=== PATIENT | male | born 1950 ===

== ENCOUNTER 2016-05-30 19:12 | Emergency (ER) | payer MEDICARE, MEDICAID ==
[~2016-05-30] VITALS: Ht 172.7 cm; Wt 94.1 kg
[2016-05-30 19:14] VITALS: BP 121/83; PULSE 65; RESP 18; O2SAT 97
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
[2016-05-30] MEDS ORDERED: oxyCODONE-Acetamin 5-325 mg Tablet PO ONE (19:25)
--- NOTE | 2016-05-30 19:54 | DRSVH ---
PROCEDURE: CT CERVICAL SPINE WITHOUT CONTRAST ([id number]) INDICATIONS: neck pain, abnormal xrays from urgent care, trauma TECHNIQUE: Noncontrast 3 mm thick sections acquired from the skull base to the T4 level. Sagittal and coronal r eformats were then constructed. For radiation dose reduction, the following was used: automated exp osure control, adjustment of mA and/or kV according to patient size. COMPARISON: [facility], CR, SPINE CERVICAL 2 OR 3VW, 10/08/2012, 21:12. [facility], CR, XR [employer] PA CXR MIN 3VW RT, 05/30/2016, 17:49. FINDINGS: Image quality: Excellent. Bones: No acute fracture dislocation. Trace anterolisthesis is present at C4-5 which is new when comp ared with the study dated 11/15/10. Soft tissues: Prevertebral soft tissues are normal in thickness. No paravertebral hematomas. No ap ical pneumothoraces. IMPRESSION: 1. No acute cervical spine fracture. 2. Trace C4-5 anterolisthesis which is new when compared with the prior CT from 2010. If there is clinical concern for new ligamentous laxity, MRI of the cervical spine is recommended to evaluate for acute edematous injury. This finding was discussed with Dr. Renner at 7:50 PM on 05/30/16. Dictated by: Arelis Haq M.D. on 05/30/2016 at 19:43 Approved by: Arelis Haq M.D. on 05/30/2016 at 19:52
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
[2016-05-30] MEDS ORDERED: _oxyCODONE/APAP 5-325 mg Tablet PO PRN (21:45)
[2016-05-30 22:04] VITALS: BP 116/64; PULSE 68; RESP 18; O2SAT 95
== END 2016-05-30 22:05 | disposition home or self-care (01) ==
LOC: SED 19:12
DX: S16.1XXA Strain of muscle, fascia and tendon at neck level, initial encounter (principal); Y04.0XXA Assault by unarmed brawl or fight, initial encounter; Y93.89 Activity, other specified; Y92.89 Other specified places as the place of occurrence of the external cause; Y99.8 Other external cause status; R07.81 Pleurodynia; F17.200 Nicotine dependence, unspecified, uncomplicated; Z88.5 Allergy status to narcotic agent

== ENCOUNTER 2016-06-25 15:42 | Emergency (ER) | payer MEDICARE, MEDICAID ==
[~2016-06-25] VITALS: Ht 172.7 cm; Wt 95.5 kg
[2016-06-25 15:59] VITALS: BP 132/83; PULSE 66; RESP 16; O2SAT 97
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
--- NOTE | 2016-06-25 18:06 | DRSVH ---
PROCEDURE: X-RAY RIGHT RIBS INCLUDEING PA CHEST, MINUMUM THREE VIEWS ([id number]) INDICATIONS: fall,pain right ribs in back TECHNIQUE: 2 views of the right ribs were acquired, along with a single view chest. COMPARISON: None. FINDINGS: Surgical changes and devices: None. Bones and chest wall: No acute fractures or dislocations. There are healed posterior inferior right rib fractures. No suspicious bony lesions. Overlying soft tissues appear unremarkable. Lungs and pleura: No pleural effusions or pneumothorax. Lungs appear clear. Mediastinum: Mediastinal contours appear normal. Heart size is normal. IMPRESSION: No acute radiographic findings. If pain persists, repeat study in 5-7 days is recommende d to exclude occult fracture. Dictated by: Arelis Haq M.D. on 06/25/2016 at 18:02 Approved by: Arelis Haq M.D. on 06/25/2016 at 18:05
--- NOTE | 2016-06-25 18:09 | DRSVH ---
PROCEDURE: X-RAY CERVICAL SPINE, 2 OR 3 VIEWS INDICATIONS: fall TECHNIQUE: 3 view(s) of the cervical spine were acquired. COMPARISON: None. FINDINGS: Bones: No fractures or dislocations to the C5 level. The lateral masses of C1 appear intact on the odontoid view. No suspicious bony lesions. Soft tissues: No prevertebral soft tissue swelling. IMPRESSION: No acute cervical spine injury. Limited study. Dictated by: Arelis Haq M.D. on 06/25/2016 at 18:07 Approved by: Arelis Haq M.D. on 06/25/2016 at 18:08
--- NOTE | 2016-06-25 18:09 | DRSVH ---
PROCEDURE: X-RAY LEFT WRIST COMPLETE, MINIMUM THREE VIEWS ([id number]) INDICATIONS: fall TECHNIQUE: 4 views of the wrist were acquired. COMPARISON: [facility], , WRIST COMP MIN 3VW (LT), 11/07/2013, 15:10. FINDINGS: Bones: There is an old non-unified fracture of the scaphoid. Severe degenerative changes are present at the radiocarpal joint. No acute fracture or dislocation. Scaphoid view: There is an old non-unified scaphoid fracture. Soft tissues: No suspicious soft tissue calcifications. IMPRESSION: Old non-unified scaphoid fracture. No acute fracture or dislocation. If pain persists, re peat study in 5-7 days is recommended to exclude occult fracture. Dictated by: Arelis Haq M.D. on 06/25/2016 at 18:05 Approved by: Arelis Haq M.D. on 06/25/2016 at 18:07
[2016-06-25] MEDS ORDERED: oxyCODONE-Acetamin 5-325 mg Tablet PO ONE (18:15)
--- NOTE | 2016-06-25 18:18 | DRSVH ---
PROCEDURE: X-RAY THORACIC SPINE, 3 VIEWS INDICATIONS: fall TECHNIQUE: 3 views of the thoracic spine were acquired. COMPARISON: None. FINDINGS: Bones: No fractures or dislocations. Moderate degenerative change. No suspicious bony lesions. 12 pa irs of ribs are noted, and appear intact where visualized. Soft tissues: No paravertebral stripe thickening. IMPRESSION: Moderate degenerative change. No wedge compression deformities. Dictated by: Arelis Haq M.D. on 06/25/2016 at 18:16 Approved by: Arelis Haq M.D. on 06/25/2016 at 18:16
--- NOTE | 2016-06-25 19:36 | DRSVH ---
PROCEDURE: CT CERVICAL SPINE WITHOUT CONTRAST ([id number]) INDICATIONS: fall, neck pain, tender at c6-c7 TECHNIQUE: Noncontrast 3 mm thick sections acquired from the skull base to the T4 level. Sagittal and coronal r eformats were then constructed. For radiation dose reduction, the following was used: automated exp osure control, adjustment of mA and/or kV according to patient size. COMPARISON: None. FINDINGS: Image quality: Motion artifact limits evaluation at the cervicothoracic junction. Bones: No fractures or dislocations. Moderate degenerative changes present at the cervicothoracic ju nction. Visualized superior ribs are intact. Soft tissues: Prevertebral soft tissues are normal in thickness. No paravertebral hematomas. No ap ical pneumothoraces. IMPRESSION: No acute cervical spine injury. Degenerative change. Dictated by: Arelis Haq M.D. on 06/25/2016 at 19:30 Approved by: Arelis Haq M.D. on 06/25/2016 at 19:34
[2016-06-25 20:12] VITALS: BP 158/88; PULSE 60; RESP 16; O2SAT 98
[2016-06-25] MEDS ORDERED: _oxyCODONE/APAP 5-325 mg Tablet PO PRN (20:35)
== END 2016-06-25 21:18 | disposition home or self-care (01) ==
LOC: SED 15:42
DX: S16.1XXA Strain of muscle, fascia and tendon at neck level, initial encounter (principal); S63.502A Unspecified sprain of left wrist, initial encounter; S20.222A Contusion of left back wall of thorax, initial encounter; W11.XXXA Fall on and from ladder, initial encounter; Y93.H9 Activity, other involving exterior property and land maintenance, building and construction; Y92.009 Unspecified place in unspecified non-institutional (private) residence as the place of occurrence of the external cause; Y99.8 Other external cause status; F17.200 Nicotine dependence, unspecified, uncomplicated; Z88.5 Allergy status to narcotic agent

== ENCOUNTER 2016-07-21 13:57 | Emergency (ER) | payer MEDICARE, MEDICAID ==
[~2016-07-21] VITALS: Ht 172.7 cm; Wt 95.5 kg
[2016-07-21 14:00] VITALS: BP 152/101; RESP 16; O2SAT 98
--- NOTE | 2016-07-21 15:33 | ED.REPORT ---
HPI-General Illness Date of Service July 21, 2016 ED Provider: Bryson Jurado MD 65 year old male with a history of arthritis presents to the ER after he woke up with left neck pain since yesterday. He describes this as "stiff". The day prior he was moving boxes into the attic on an A frame ladder. He is not sure if the pain is from this or sleeping wrong. He denies any trauma. Associated symptoms include occipital headache. Pt denies blurry vision and difficulty swallowing. Pt has had this pain previously and is wearing a neck brace that he was given previously. Pain worse with moving head. Nursing Notes Stated Complaint: PULLED NECK AND SHOULDER MUSCLES Chief Complaint: ENT & Mouth Nursing Notes Reviewed: Yes Allergies: Coded Allergies: hydrocodone (Verified Allergy, Unknown, rash, 07/21/16) Scheduled PRN Cyclobenzaprine (Cyclobenzaprine) 5 Mg Tablet 5 MG PO HS PRN PRN Spasm Ibuprofen (Ibuprofen) 800 Mg Tablet 800 MG PO TID PRN PRN For Pain General Time Seen by MD: 15:27 Chief Complaint Other (neck pain) Hx Obtained From: Patient Arrived By: Walk-in Onset Occurred: Yesterday Symptom Duration: Since onset Location: : Neck Quality: Painful Severity: Current: Moderate Associated with: Reports: Headache, Denies: Fever Exacerbated by: Moving affected area (head) Similar Sx Previous: Yes Past Medical History Past Medical History Arthritis Past Surgical History none reported Smoking History Current Every Day Smoker Social History Alcohol Use: "Social" Drug Use: THC Ambulatory Status Independent Review of Systems Full Review of Systems GI: Denies: Dysphagia Musculoskeletal: Reports: Neck pain Neurologic: Reports: Headache, Denies: Change LOC, Numbness, Vision change, Weakness Complete sys rev & neg: except as marked. Physical Exam Vital Signs Vital Signs Date Time Temp Pulse Resp B/P Pulse Ox O2 Delivery O2 Flow Rate FiO2 07/21/16 16:07 36.2 75 16 149/89 98 Room Air 07/21/16 14:00 36.2 72 16 152/101 98 Room Air Initial VS: Reviewed General/Constitutional: Well-developed, Well-nourished Head / Eyes: Atraumatic, Normocephalic, PERRL ENT: Mucous membranes moist, Conjunctiva normal, No scleral icterus Respiratory: Breath sounds normal, Clear to auscultation, No respiratory distress Cardiovascular: Regular rate & rhythm, Heart sounds normal (No murmurs), Intact distal pulses Extremities: Vascular intact, Neuro intact Skin: Warm, Dry, No cyanosis Neurologic: Alert, Oriented, Nonfocal (CN II-XII intact) Psychiatric: Mood/affect normal, Behavior normal, Normal thought content Neck: Diffuse L sided neck tenderness No C-spine tenderness. Rotation 30 degrees to the L. Re-Eval/Medical Decision Med Decision/Clinical Course 65-year-old male with chronic neck pain presenting with neck strain 1 day. He reports he had heavy lifting and then slept on it corrected and woke up with neck pain and limited range of motion. No midline tenderness. No trauma. Lateral neck tenderness as above. I cleaned strain. We will treat with muscle relaxers and NSAIDs. Return precautions given. Time of Eval: 15:54 Re-Evaluation/Progress Note: Discussed plan for discharge and follow up. All questions addressed. Counseled Regarding: Diagnosis, Need for follow-up, When/why to return to ED Discharge & Departure Primary Impression: Neck strain Encounter type: initial encounter Qualified Code: S16.1XXA - Strain of muscle, fascia and tendon at neck level, initial encounter Disposition: Home Discharge Condition All VS Reviewed: Yes Condition: Stable Patient Instructions: Cervical Neck Strain Exercises (GEN) Additional Instructions: For pain you can take an extra-strength Ibuprofen every 8 hours. Take the muscle relaxer Flexeril as directed. Do not drink alcohol or drive while taking this. Make sure that you keep stretching your neck and heat/ice the area as tolerated. Follow up with a doctor if not better by Monday. Return to the ER for any new or worsening pain, numbness, weakness, speech changes or any other concerning symptoms. Referrals: [facility] (PCP) [facility] Scribe Attestation Portions of this note were transcribed by Vicky Reed. I, (Dr. Bryson Walters) personally performed the history, physical exam and medical decision- making; I reviewed and confirmed the accuracy of the information in the transcribed note. Signed by: Vicky Reed. Alina, 07/21/2016, [id number] copies to: [facility] Bryson Jurado MD July 21, 2016 15:33 Vicky Reed July 21, 2016 15:39
[2016-07-21] MEDS ORDERED: IBUP800T28 PO (15:40)
[2016-07-21] MEDS ORDERED: CYCL5TAB PO (15:40)
[2016-07-21 16:07] VITALS: BP 149/89; PULSE 75; RESP 16; O2SAT 98
== END 2016-07-21 16:10 | disposition home or self-care (01) ==
LOC: SED 13:57
DX: S16.1XXA Strain of muscle, fascia and tendon at neck level, initial encounter (principal); X50.0XXA Overexertion from strenuous movement or load, initial encounter; Y93.89 Activity, other specified; Y92.008 Other place in unspecified non-institutional (private) residence as the place of occurrence of the external cause; Y99.8 Other external cause status; M19.90 Unspecified osteoarthritis, unspecified site; F17.200 Nicotine dependence, unspecified, uncomplicated; Z88.5 Allergy status to narcotic agent
CPT/HCPCS: 96372; 99283; J1885

== ENCOUNTER 2016-07-23 13:24 | Emergency (ER) | payer MEDICARE, MEDICAID ==
[~2016-07-23] VITALS: Ht 172.7 cm; Wt 95.5 kg
[~2016-07-23 13:24] MED LIST: CYCL5TAB PO; IBUP800T28 PO
[2016-07-23 13:41] VITALS: BP 148/95; PULSE 60; RESP 20; O2SAT 98
--- NOTE | 2016-07-23 14:09 | ED.REPORT ---
HPI-Trauma Minor / Fall Date of Service July 23, 2016 ED Provider: Bryson Jurado MD Pt is a 65 y.o. male who presents to the ED c/o headache secondary to a GLF yesterday. Pt states that he was mowing the lawn when he slipped on the grass, hitting his head. He reports associated nausea, vomiting (x1), back pain, right wrist pain, neck pain, and chest tenderness. He denies LOC, vision changes, and weakness. Pt denies taking Warfarin Nursing Notes Stated Complaint: HEADACHE,NECK BONE PAIN,MUSCLE ACHES Chief Complaint: Multiple Trauma/Fall Nursing Notes Reviewed: Yes Allergies: Coded Allergies: hydrocodone (Verified Allergy, Unknown, rash, 07/21/16) Scheduled PRN Cyclobenzaprine (Cyclobenzaprine) 5 Mg Tablet 5 MG PO HS PRN PRN Spasm Ibuprofen (Ibuprofen) 800 Mg Tablet 800 MG PO TID PRN PRN For Pain Ibuprofen (Ibuprofen) 800 Mg Tablet 800 MG PO TID PRN PRN For Pain General Time Seen by MD: 13:49 Chief Complaint Fall, Slipped, Head pain (Headache) Arrived By: Walk-in Onset Occurred: Yesterday Symptom Duration: Since onset Caused by: Accidental, Fall on ground, Slipped Context: Occurred at: Home injury Location: Back Chest Head Neck Wrist right Severity: Current: Moderate Severity: Maximum: Severe Past Medical History Past Medical History Arthritis Past Surgical History none reported Smoking History Current Every Day Smoker Social History Alcohol Use: "Social" Drug Use: THC Ambulatory Status Independent Review of Systems Musculoskeletal: Reports: Back pain, Joint pain (Right wrist), Neck pain Neurologic: Reports: Headache, Denies: Change LOC, Vision change, Weakness Complete sys rev & neg: except as marked. Cardiovascular: Reports: Chest pain (Tenderness) GI: Reports: Nausea, Vomiting Physical Exam Initial Vital Signs Vital Signs (First) Date Time Temp Pulse Resp B/P Pulse Ox O2 Delivery O2 Flow Rate FiO2 07/23/16 13:41 36.5 60 20 148/95 98 Room Air Initial VS: Reviewed Head / Eyes: Atraumatic, Normocephalic Extremities: Vascular intact, Neuro intact Skin: Warm, Dry, No cyanosis Psychiatric: Mood/affect normal, Behavior normal, Normal thought content General/Constitutional: Awake, Alert, No acute distress, Well appearing, Well developed, Well hydrated, Well nourished, Not toxic appearing Pt is ambulatory Neck: Atraumatic, Supple, Full range of motion, No swelling Neck / Muscle Tenderness: Positive: Midline tenderness high Respiratory / Chest: Atraumatic, Breath sounds NL, Breath sounds = bilat, No respiratory distress Cardiovascular: Heart rate NL, Regular rhythm, Heart sounds NL, Cap refill not delayed, Peripheral circulation NL Back: Atraumatic, Inspection NL, No paraspinal tenderness Flank / Spine / Paraspinal: Positive: Thoracic spine tender... (High) Wrist / Hand: Atraumatic, Inspection NL, Full range of motion, No deformity, Neurologic intact, Vascular intact Right Wrist: Positive: Tenderness present..., Negative: Deformity present..., Erythema present, ROM reduced, Swelling present..., Warmth present Neurologic: Oriented X3, Speech NL, No motor deficits Decreased sensation to left side of face. Interpretation & Diagnostics X-Ray Interpretation Xray Interpretation: IMPRESSION: No acute fracture identified. Of note, the base of the third and fourth metacarpals are not well seen probably due to projection. If clinically warranted, based on point tenderness in this area, repeat radiographs could be performed. Dictated by: Duglas Hwang M.D. on 07/23/2016 at 15:25 Approved by: Duglas Hwang M.D. on 07/23/2016 at 15:30 Study Performed: PROCEDURE: X-RAY RIGHT WRIST COMPLETE, MINIMUM THREE VIEWS ([id number]) X-Ray Ordered: Wrist right CT Head Interpretation IMPRESSION: No acute intracranial process or interval change. Dictated by: Duglas Hwang M.D. on 07/23/2016 at 15:03 Approved by: Duglas Hwang M.D. on 07/23/2016 at 15:04 CT C-Spine Interpretation IMPRESSION: No acute fracture Degenerative changes as above Dictated by: Duglas Hwang M.D. on 07/23/2016 at 15:04 Approved by: Duglas Hwang M.D. on 07/23/2016 at 15:07 Re-Eval/Medical Decision Med Decision/Clinical Course 65-year-old male presenting requesting narcotics. Does report ground-level fall with resultant headache and neck strain. He reports vomiting today. Vital signs stable. His neurological exam is normal. CT scan of the head with no acute pathology. He reports right wrist pain with diffuse tenderness no deformity no neurovascular compromise. His x-ray shows no fracture. Patient repeatedly asked for narcotics which I told him were not indicated. He then requested to go home. Re-Evaluation/Progress : Time of Eval: 15:27 Re-Evaluation/Progress Note: Physical exam performed. Pt is now stating he has left sided facial numbness, he states he didn't notice it until the resident examined him. He is also reporting feeling "ill". Counseled Regarding: Diagnosis, Lab results, Need for follow-up, When/why to return to ED Discharge & Departure Impression: Primary Impression: Head injury Additional Impressions: Neck strain Left wrist injury Disposition: Home Discharge Condition All VS Reviewed: Yes Condition: Improved Patient Instructions: Cervical Strain (GEN), Concussion (ED) Additional Instructions: Thank you for entrusting us with your care today. You imaging was reassuring and no traumatic injury was seen. If your wrist pain is persistent you may need follow-up imaging, you can follow- up with an orthopedic surgeon. Take ibuprofen and Tylenol as directed for pain. I recommend you follow-up with your primary care provider this week, call Monday to schedule an appointment. Return if you experience increased pain, numbness or tingling, incontinence, vomiting, or any new or worsening symptoms. Referrals: NOPCP (PCP) Axel Gant DO [facility] [place] Attestation Portions of this note were transcribed by Beronica Moon. I, Dr. Jurado personally performed the history, physical exam and medical decision-making; I reviewed and confirmed the accuracy of the information in the transcribed note. Signed by: Alina Moffett, 07/23/16 and 1545. copies to: Axel Gant DO; [facility] Bryson Jurado MD July 23, 2016 14:09 BERONICA MOON July 23, 2016 14:22
--- NOTE | 2016-07-23 15:06 | DRSVH ---
PROCEDURE: CT BRAIN WITHOUT CONTRAST ([id number]) INDICATIONS: trauma TECHNIQUE: Noncontrast 4.5 mm thick angled axial sections acquired from the foramen magnum to the vertex, with c oronal reformats. COMPARISON: [facility], CT, BRAIN W/O CONTRAST, 12/27/2008, 18:04. FINDINGS: Image quality: Excellent. CSF spaces: Basal cisterns are patent. No extra-axial fluid collections. The ventricles are symmet mikala in size and shape. Brain: No intracranial bleeds or masses. There is cerebral volume loss for age, with resultant vent ricular and sulcal prominence. There are periventricular and deep white matter chronic small vessel ischemic changes. There is intracranial internal carotid artery atherosclerosis. Cavum septum pellu cidum as before Skull and face: Calvarium and visualized facial bones appear intact, without suspicious lesions. Sinuses: Visualized sinuses and mastoids are clear. IMPRESSION: No acute intracranial process or interval change. Dictated by: Duglas wHang M.D. on 07/23/2016 at 15:03 Approved by: Duglas Hwang M.D. on 07/23/2016 at 15:04
--- NOTE | 2016-07-23 15:08 | DRSVH ---
PROCEDURE: CT CERVICAL SPINE WITHOUT CONTRAST ([id number]) INDICATIONS: trauma TECHNIQUE: Noncontrast 3 mm thick sections acquired from the skull base to the T4 level. Sagittal and coronal r eformats were then constructed. For radiation dose reduction, the following was used: automated exp osure control, adjustment of mA and/or kV according to patient size. COMPARISON: [facility], CT, CT CERVICAL SPINE WO CON, 06/25/2016, 18:56. FINDINGS: Image quality: Excellent. Bones: No fractures or dislocations. Visualized superior ribs are intact. Degenerative changes inc luding endplate spurring and sclerosis and mild to moderate disc space narrowing at C6-C7 and C7-T1. There is grade 1 anterolisthesis of C4 on C5. Diffuse facet arthropathy. Soft tissues: Prevertebral soft tissues are normal in thickness. No paravertebral hematomas. No ap ical pneumothoraces. IMPRESSION: No acute fracture Degenerative changes as above Dictated by: Duglas Hwang M.D. on 07/23/2016 at 15:04 Approved by: Duglas Hwang M.D. on 07/23/2016 at 15:07
--- NOTE | 2016-07-23 15:31 | DRSVH ---
PROCEDURE: X-RAY RIGHT WRIST COMPLETE, MINIMUM THREE VIEWS ([id number]) INDICATIONS: trauma TECHNIQUE: 4 views of the wrist were acquired. COMPARISON: [facility], CR, XR WRIST 3VW LT, 06/25/2016, 17:36. FINDINGS: Bones: The base of the third and fourth metacarpals not well-visualized. No suspicious bony lesions. Possible incidental carpal boss Scaphoid view: No scaphoid fracture seen. Soft tissues: No suspicious soft tissue calcifications. IMPRESSION: No acute fracture identified. Of note, the base of the third and fourth metacarpals are not well seen probably due to projection. If clinically warranted, based on point tenderness in this area, repeat radiographs could be performed. Dictated by: Duglas Hwang M.D. on 07/23/2016 at 15:25 Approved by: Duglas Hwang M.D. on 07/23/2016 at 15:30
[2016-07-23] MEDS ORDERED: IBUP800T28 PO (15:41)
== END 2016-07-23 16:00 | disposition home or self-care (01) ==
LOC: SED 13:24
DX: S09.8XXA Other specified injuries of head, initial encounter (principal); S16.1XXA Strain of muscle, fascia and tendon at neck level, initial encounter; S69.92XA Unspecified injury of left wrist, hand and finger(s), initial encounter; W01.0XXA Fall on same level from slipping, tripping and stumbling without subsequent striking against object, initial encounter; Y93.H2 Activity, gardening and landscaping; Y99.8 Other external cause status; F17.200 Nicotine dependence, unspecified, uncomplicated; Z88.5 Allergy status to narcotic agent